=== PATIENT | female | born 1985 | race Caucasian/White ===

== ENCOUNTER 2018-06-19 13:07 | Emergency (ER) | payer SELFPAY ==
[2018-06-19] MEDS ORDERED: Ondansetron ODT 4 MG TAB ONE (14:05)
== END 2018-06-19 14:08 | disposition home or self-care (01) ==
LOC: BURERS 13:07
DX: R11.2 Nausea with vomiting, unspecified (principal); T40.2X5A Adverse effect of other opioids, initial encounter; J45.909 Unspecified asthma, uncomplicated; F41.9 Anxiety disorder, unspecified; F31.9 Bipolar disorder, unspecified; F17.210 Nicotine dependence, cigarettes, uncomplicated; Z79.899 Other long term (current) drug therapy
CPT/HCPCS: 99283; Q0162

== ENCOUNTER 2019-06-18 02:15 | Emergency (ER) | payer SELFPAY ==
[2019-06-18 02:37] LABS: Bilirubin Negative (Negative); Blood, Urine Large (Negative); Clarity Slightly Cloudy (Clear); Glucose, Urine (Dipstick) Negative (Negative); Leukocyte Moderate (Negative); Nitrite Positive (Negative); Protein, Urine (Dipstick) 100 mg/dL (Neg-Trace); Urobilinogen 0.2 mg/dL (Less than 2)
[2019-06-18 02:38] LABS: Pregnancy Test - Urine (BHCG) Negative (Negative); Pregu Control Background? CLEAR/WHITE (CLR/WHITE); Pregu Control Bar Appear? YES (CONTROL BAR)
[2019-06-18 02:41] LABS: Bacteria/HPF 3+ HPF (None Seen); RBC/HPF Greater than 50 HPF (0-3); Squamous Epithelial None Seen HPF (0-3); WBC/HPF Greater than 50 HPF (0-3)
[2019-06-18] MEDS ORDERED: Ibuprofen 200 MG TAB ONE (02:43)
== END 2019-06-18 02:48 | disposition home or self-care (01) ==
LOC: BURERS 02:15
DX: N10 Acute pyelonephritis (principal); J45.909 Unspecified asthma, uncomplicated; F31.9 Bipolar disorder, unspecified; F41.9 Anxiety disorder, unspecified; F17.210 Nicotine dependence, cigarettes, uncomplicated; Z71.6 Tobacco abuse counseling
CPT/HCPCS: 81003; 81015; 81025; 87077; 87086; 87186; 99406

== ENCOUNTER 2020-01-18 10:49 | Emergency (ER) | payer SELFPAY ==
[2020-01-18] MEDS ORDERED: Rabies Vaccine Human 2.5 UNITS VIAL ONE (11:30)
[2020-01-18] MEDS ORDERED: Adacel (T-DAP) 0.5 ML SYRINGE ONE (11:30)
[2020-01-18] MEDS ORDERED: Amoxicillin/Potassium Clav 875 MG TAB ONE (12:12)
== END 2020-01-18 12:15 | disposition home or self-care (01) ==
LOC: BURERS 10:49
DX: S51.851A Open bite of right forearm, initial encounter (principal); S60.311A Abrasion of right thumb, initial encounter; L03.113 Cellulitis of right upper limb; J45.909 Unspecified asthma, uncomplicated; F17.210 Nicotine dependence, cigarettes, uncomplicated; R59.0 Localized enlarged lymph nodes; Z23 Encounter for immunization; W54.0XXA Bitten by dog, initial encounter
CPT/HCPCS: 90375; 90376; 90471; 90472; 90675; 90715; 96372

== ENCOUNTER 2020-08-01 13:07 | Emergency (ER) | payer SELFPAY ==
[2020-08-01] MEDS ORDERED: HYDROcodone/Acetaminophen 10/325 mg Tablet ONE (13:55)
[2020-08-01] MEDS ORDERED: Ibuprofen 800 MG TAB ONE (13:56)
== END 2020-08-01 14:25 | disposition home or self-care (01) ==
LOC: BURERS 13:07
DX: M51.26 Other intervertebral disc displacement, lumbar region (principal); F17.210 Nicotine dependence, cigarettes, uncomplicated
CPT/HCPCS: 72131

== ENCOUNTER 2021-03-13 09:08 | Emergency (ER) | payer BC, SELFPAY ==
[2021-03-14 02:13] LABS: SARS-CoV-2 PCR by NAA Not Detected (NotDetected)
== END 2021-03-13 09:30 | disposition home or self-care (01) ==
LOC: BURERS 09:08
DX: J06.9 Acute upper respiratory infection, unspecified (principal); K52.9 Noninfective gastroenteritis and colitis, unspecified; Z20.822 Contact with and (suspected) exposure to COVID-19; F17.210 Nicotine dependence, cigarettes, uncomplicated
CPT/HCPCS: 99283; U0003; U0005

== ENCOUNTER 2021-11-11 15:36 | Emergency (ER) | payer SELFPAY ==
[2021-11-11] MEDS ORDERED: Famotidine/PF 20 mg/2ml Vial ONE (16:19)
[2021-11-11] MEDS ORDERED: methylPREDNISolone Sod Succ/PF 125 MG/2 ML VIAL ONE (16:19)
[2021-11-11] MEDS ORDERED: hydrOXYzine 25 MG TAB ONE (18:55)
== END 2021-11-11 19:35 | disposition home or self-care (01) ==
LOC: BURERS 15:36
DX: T78.01XA Anaphylactic reaction due to peanuts, initial encounter (principal); F17.210 Nicotine dependence, cigarettes, uncomplicated
CPT/HCPCS: 96374; 96375; J2930; S0028

== ENCOUNTER 2022-08-24 10:45 | Emergency (ER) | payer OTHER, SELFPAY ==
[2022-08-24] MEDS ORDERED: Doxycycline 100 MG CAP ONE (12:18)
[2022-08-24] MEDS ORDERED: Sulfameth/Trimethoprim DS 800-160mg TAB ONE (12:18)
[2022-08-24] MEDS ORDERED: HYDROcodone/Acetaminophen 5/325 mg Tablet ONE (13:51)
== END 2022-08-24 14:04 | disposition home or self-care (01) ==
LOC: BURERS 10:45
DX: L03.314 Cellulitis of groin (principal); F17.210 Nicotine dependence, cigarettes, uncomplicated
CPT/HCPCS: 99283

== ENCOUNTER 2024-01-29 06:28 | Emergency (ER) | payer OTHER, SELFPAY ==
[2024-01-29] MEDS ORDERED: Ondansetron ODT 4 MG TAB ONE (06:43)
[2024-01-29 06:59] LABS: #Basophils 0.1 thou/uL (0.0-0.2); #Eosinphils 0.2 thou/uL (0.0-0.7); #Lymphocytes 2.8 thou/uL (1.20-3.40); #Monocytes 0.6 thou/uL (0.11-0.59); #Neutrophils 6.2 thou/uL (1.40-6.50); %Basophils 1.2 % (0.0-1.0); %Eosinophils 2.4 % (0.0-10.0); %Lymphocytes 28.1 % (21.0-51.0); %Monocytes 5.9 % (0.0-10.0); %Neutrophils 62.5 % (42.0-75.0); Hematocrit 40.3 % (36.0-47.0); Hemoglobin 13.9 g/dL (12.0-16.0); Mean Corpuscular HGB CONC 34.5 g/dL (32.0-36.0); Mean Corpuscular Hemoglobin 31.1 pg (27.0-31.0); Mean Corpuscular Volume 90.1 fl (78.0-98.0); Mean Platelet Volume 7.6 fL (7.4-10.4); Platelet Count 289 10x3/uL (130-400); RBC Distribution Width 11.7 % (11.5-14.5); Red Blood Cell (RBC) Count 4.47 mill/uL (4.20-5.40); White Blood Cell (WBC) Count 9.9 10x3/uL (4.8-10.8)
[2024-01-29 07:17] LABS: ALT (SGPT) 21 U/L (8-55); AST (SGOT) 16 U/L (5-34); Alkaline Phosphatase 76 U/L (40-110); Anion Gap 14 mmol/L (10-20); BUN (Urea Nitrogen) 14 mg/dL (7.0-18.7); Bilirubin, Total 0.3 mg/dL (0.2-1.2); Calc. Creatinine Clearance 0 mL/min (70-130); Calcium 9.5 mg/dL (7.8-10.44); Carbon Dioxide 21 mmol/L (22-29); Chloride 108 mmol/L (98-107); Estimated GFR 116; Globulin 2.9 g/dL (2.4-3.5); Glucose 93 mg/dL (70-105); Protein, Total 6.9 g/dL (6.0-8.3); Sodium 139 mmol/L (136-145)
== END 2024-01-29 07:53 | disposition home or self-care (01) ==
LOC: BURERS 06:28
DX: R11.2 Nausea with vomiting, unspecified (principal); R19.7 Diarrhea, unspecified; F17.290 Nicotine dependence, other tobacco product, uncomplicated
CPT/HCPCS: 36415; 80053; 85025; 99284; Q0162

== ENCOUNTER 2025-06-17 07:54 | Emergency (ER) | payer SELFPAY ==
[2025-06-17] MEDS ORDERED: Tetracaine 0.5% PF 4 ML BOT ONE (08:02)
[2025-06-17] MEDS ORDERED: Fluorescein Opthalmic Strip ONE (08:02)
== END 2025-06-17 08:44 | disposition home or self-care (01) ==
LOC: BURERS 07:54
DX: H10.12 Acute atopic conjunctivitis, left eye (principal); F17.210 Nicotine dependence, cigarettes, uncomplicated